=== PATIENT | female | born 1950 | race Caucasian/White ===

== ENCOUNTER 2017-01-31 11:03 | Day surgery (SDC) | payer OTHER ==
[~2017-01-31] VITALS: Ht 167.6 cm; Wt 92.5 kg
[~2017-01-31 11:03] MED LIST: PROPOFOL 10 MG/ML, 50ML ONE
[2017-01-31 12:03] VITALS: BP 113/79
[2017-01-31] MEDS ORDERED: OMEP40CA6 PO (12:16)
[2017-01-31] MEDS ORDERED: CHOL400C PO (12:16)
[2017-01-31] MEDS ORDERED: SUMA25TA4 PO (12:16)
[2017-01-31] MEDS ORDERED: FURO20TA3 PO (12:16)
[2017-01-31] MEDS ORDERED: PRED20TA PO (12:16)
[2017-01-31] MEDS ORDERED: HYDR200T PO (12:16)
[2017-01-31 12:38] VITALS: BP 113/79
[2017-01-31] MEDS ORDERED: LACTATED RINGERS 1,000 ML IV SCH (12:49)
[2017-01-31 13:21] LABS: ASPARTATE AMINO TRANSFERASE 31 U/L (15-37); BLOOD UREA NITROGEN 15 mg/dL (7-18)
[2017-01-31] MEDS ORDERED: MIDAZOLAM 1 MG/ML, 2ML ONE (14:44)
[2017-01-31] MEDS ORDERED: ALBUTEROL/IPRATROPIUM 2.5MG/0.5MG, 3 ML NPPB PRN (15:30)
[2017-01-31] MEDS ORDERED: ONDANSETRON 2MG/ML, 2ML IVPush PRN (15:30)
[2017-01-31] MEDS ORDERED: METOPROLOL 1 MG/ML, 5ML IV PRN (15:30)
[2017-01-31] MEDS ORDERED: hydrALAzine 20 MG/ML, 1ML IV PRN (15:30)
[2017-01-31] MEDS ORDERED: ACETAMINOPHEN 325 MG TABLET PO PRN (15:30)
== END 2017-01-31 17:00 | disposition home or self-care (01) ==
LOC: OUT 11:03
PROVIDERS: ATTEND Internal Medicine Geriatric Medicine
DX: K57.30 Diverticulosis of large intestine without perforation or abscess without bleeding (principal); K21.9 Gastro-esophageal reflux disease without esophagitis; M06.9 Rheumatoid arthritis, unspecified; J84.10 Pulmonary fibrosis, unspecified; G43.909 Migraine, unspecified, not intractable, without status migrainosus; Z94.2 Lung transplant status; E66.9 Obesity, unspecified; Z68.32 Body mass index [BMI] 32.0-32.9, adult
CPT/HCPCS: 36415; 43235; 45378; 71010; 80053; 93005; J1720; J2250; J2704; J7120

== ENCOUNTER → 2017-02-01 | Outpatient (CLI) | payer OTHER ==
[~2017-02-01] MED LIST changes: +ACETAMINOPHEN 325 MG TABLET PO PRN; +ALBUTEROL/IPRATROPIUM 2.5MG/0.5MG, 3 ML NPPB PRN; +CHOL400C PO; +FURO20TA3 PO; +HYDR200T PO; +HYDROCORTISONE 100 MG INJ. ONE; +METOPROLOL 1 MG/ML, 5ML IV PRN; +OMEP40CA6 PO; +PRED20TA PO; +PROMETHAZINE 25 MG/ML, 1ML IV PRN; -PROPOFOL 10 MG/ML, 50ML ONE; +SUMA25TA4 PO; +hydrALAzine 20 MG/ML, 1ML IV PRN
== END | disposition home or self-care (01) ==
LOC: CFH 11:16
PROVIDERS: ATTEND Internal Medicine
DX: Z12.31 Encounter for screening mammogram for malignant neoplasm of breast (principal)
CPT/HCPCS: G0202; J1720